=== PATIENT | male | born 1970 ===

== ENCOUNTER 2017-05-22 00:04 | Emergency (ER) | payer OTHER ==
[2017-05-22] MEDS ORDERED: ASPIRIN 325 MG ENTERIC COATED TABLET (FP) PO ONE (00:15)
[2017-05-22 00:24] VITALS: BP 152/107; PULSE 88; TEMP 98.6; BMI 29.1
[2017-05-22] MEDS ORDERED: HEPARIN NA (PORCINE) 5,000 UNITS/ML 1ML VIAL IVPUSH PRN ×3 (00:34)
[2017-05-22] MEDS ORDERED: CLOPIDOGREL BISULFATE 300 MG TABLET PO ONE (00:34)
--- NOTE | 2017-05-22 00:36 | PDOC ---
History of Present Illness - General Chief Complaint: Chest Pain Stated Complaint: CHEST PAIN History Source: Patient Exam Limitations: No Limitations - History of Present Illness Initial Comments: 05/22/17 02:20 Presents with cp x 30 minutes central, squeezing a/w diaphoresis + nausea + dyspnea Became unresponsive without pulse. On monitor--vfib. Defibrillated with 200J with resumption of NSR. EKG with inferior STEMI Treated with asa, plavix, heparin. Arranged emergent cath at [facility] Timing/Duration: 1/2 hour Severity: severe Modifying Factors: worse with: cold therapy, eating, immobilization, medication , movement, rest Associated Symptoms: reports: chest pain, diaphoresis, nausea/vomiting. denies : fever/chills, headaches, loss of appetite Aspirin Received prior to arrival: Yes: no aspirin today Beta Tramaine Contraindications(Core Measure): Yes: Other (inferior stemi) Past History - Past Medical History Allergies/Adverse Reactions: Allergies Allergy/AdvReac Type Severity Reaction Status Date / Time No Known Allergies Allergy Verified 05/22/17 00:34 Home Medications: Ambulatory Orders NK [No Known Home Medication] 05/22/17 COPD: No - Immunization History Immunization Up to Date: Yes - Suicide/Smoking/Psychosocial Hx Smoking History: Never smoked Hx Alcohol Use: No Drug/Substance Use Hx: No Substance Use Type: None Review of Systems - Review of Systems All Other Systems: Reviewed and Negative *Physical Exam - Vital Signs Last Vital Signs Temp Pulse Resp BP Pulse Ox 98.6 F 88 18 152/107 99 05/22/17 00:07 05/22/17 00:07 05/22/17 00:07 05/22/17 00:07 05/22/17 00:07 - Physical Exam General Appearance: Yes: Nourished, Appropriately Dressed HEENT: positive: Normal Voice Neck: positive: Supple Respiratory/Chest: positive: Lungs Clear Cardiovascular: positive: Regular Rhythm Gastrointestinal/Abdominal: negative: Tender, Distended Lymphatic: negative: Adenopathy Musculoskeletal: positive: Normal Inspection Extremity: positive: Normal Capillary Refill Integumentary: positive: Normal Color Neurologic: positive: Fully Oriented, Alert Heart Score/ECG Review - History History: Highly suspicious - Risk Factors Risk Factors Heart Score: No Hx Hypertension, No Hx Diabetes - ECG Intrepretation Rhythm: Regular Rhythm - ST and T ST Elevation Suggest: Acute Myocardial Infarct - ECG Impressions Acute Myocardial Infarction: Inferior ED Treatment Course - Consult/PCP Case Discussed with Personal Care Physician Not on Staff:: 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 Transfer for emergent cath Medical Decision Making - Critical Care Time Total Critical Care Time (minutes): 90 Critical Care Statement: The care of this patient involved high complexity decision making to prevent further life threatening deterioration of the patient 's condition and/or to evaluate & treat vital organ system(s) failure or risk of failure. - Medical Decision Making 05/22/17 02:27 Inferior STEMI with vfib arrest. Transfer to [facility] for definitive care *DC/Admit/Observation/Transfer Diagnosis at time of Disposition: STEMI (ST elevation myocardial infarction) Qualifiers: Involved coronary artery: other inferior wall coronary artery Qualified Code(s) : I21.19 - ST elevation (STEMI) myocardial infarction involving other coronary artery of inferior wall - Discharge Dispostion Disposition: TRANSFER ACUTE CARE/OTHER HOSP Condition at time of disposition: Guarded - Referrals - Patient Instructions - Post Discharge Activity
[2017-05-22] MEDS ORDERED: HEPARIN INFUSION - 25,000 UNITS/500 ML INFUS.BAG IVPB SCH (00:45)
[2017-05-22] MEDS ORDERED: ASPIRIN 325 MG TABLET PO ONE (10:00)
--- NOTE | 2017-05-24 12:36 | EKG ---
Test Reason : Blood Pressure : / mmHG Vent. Rate : 129 BPM Atrial Rate : 129 BPM P-R Int : 140 ms QRS Dur : 088 ms QT Int : 312 ms P-R-T Axes : 021 053 100 degrees QTc Int : 457 ms SINUS TACHYCARDIA INFERIOR INFARCT , POSSIBLY ACUTE ANTERIOR INJURY PATTERN ACUTE IN / STEMI Consider right ventricular involvement in acute inferior infarct ABNORMAL ECG NO PREVIOUS ECGS AVAILABLE Confirmed by JOHNNY CASTILLO MD ([id number]) on 05/24/2017 12:35:43 PM Referred By: MD CABRALES Confirmed By:JOHNNY CASTILLO MD
== END 2017-05-22 01:00 | disposition short-term general hospital (02) ==
LOC: FER 00:04
PROC: 3E033GC Introduction of Other Therapeutic Substance into Peripheral Vein, Percutaneous Approach (ICD-10-PCS; principal; 2017-05-22)
DX: I21.9 Acute myocardial infarction, unspecified (principal)
CPT/HCPCS: 93005; 99283-25; J1644